=== PATIENT | female | born 1960 | race Caucasian/White ===

== ENCOUNTER 2023-02-05 05:44 | Observation (INO) ==
[2023-02-05] MEDS ORDERED: Lactated Ringers 1000 ml BAG 1,000 ML IV SCH (06:00)
[2023-02-05] MEDS ORDERED: Famotidine IV 10 MG/ML 2 ml VIAL (20 mg) IV ONE (06:00)
[2023-02-05] MEDS ORDERED: Buffered Lidocaine 1% SYRIN 1 ml INTRADERM ONE (06:00)
[2023-02-05] MEDS ORDERED: Dexamethasone IV 4 MG/ML VIAL 1 ml VIAL IV SLOW PU ONE (06:00)
[2023-02-05] MEDS ORDERED: Famotidine IV 10 MG/ML 2 ml VIAL (20 mg) ONE (06:47)
[2023-02-05] MEDS ORDERED: ceFAZolin 2 GM in NS PREMIX 2 GM/100 ML BAG IVPB ONE (06:47)
[2023-02-05] MEDS ORDERED: Dexamethasone IV 4 MG/ML VIAL 1 ml VIAL ONE ×2 (06:47→07:10)
[2023-02-05] MEDS ORDERED: Buffered Lidocaine 1% SYRIN 1 ml ONE (06:47)
[2023-02-05] MEDS ORDERED: Bupivacaine 0.5% SDV PF 30ML VIAL ONE (06:55)
[2023-02-05] MEDS ORDERED: Lidocaine 1% w EPI 1:100,000 MDV 20 ML VIAL ONE (06:55)
[2023-02-05] MEDS ORDERED: Propofol 10 MG/ML 20 ML BTL ONE (07:09)
[2023-02-05] MEDS ORDERED: fentaNYL 100 mcg/2 ml 50 MCG/ML VIAL ONE ×3 (07:09→13:36)
[2023-02-05] MEDS ORDERED: Midazolam 2 mg/2 ml VIAL 1 mg/ml 2 ml VIAL (2 mg) ONE (07:09)
[2023-02-05] MEDS ORDERED: Phenylephrine IV 10 MG/ML 1 ml VIAL ONE (07:09)
[2023-02-05] MEDS ORDERED: Ondansetron 4 mg VIAL 2 MG/ML 2 ml VIAL ONE (07:09)
[2023-02-05] MEDS ORDERED: Lidocaine 2% PF 5 ML VIAL ONE (07:09)
[2023-02-05] MEDS ORDERED: Rocuronium 50 mg VIAL 10 mg/ml 5 ml VIAL (50 mg) ONE ×2 (07:10→11:06)
[2023-02-05] MEDS ORDERED: Acetaminophen IV 1 GM/100ML 1,000 MG/100 ML BAG IV ONE (08:44)
[2023-02-05] MEDS ORDERED: HYDROmorphone 0.5 MG/0.5 ML SYRINGE ONE (09:57)
[2023-02-05] MEDS ORDERED: Metoclopramide 5 MG/ML VIAL (10 mg) IV PRN (11:32)
[2023-02-05] MEDS ORDERED: Naloxone 0.4 mg VIAL 0.4 mg/ml 1 ml VIAL IV PRN (11:32)
[2023-02-05] MEDS ORDERED: Ondansetron 4 mg VIAL 2 MG/ML 2 ml VIAL IV PRN ×2 (11:32→13:35)
[2023-02-05] MEDS ORDERED: HYDROcodone/ACETAMIN 5/325 mg TAB ONE ×2 (13:06→15:41)
[2023-02-05] MEDS: fentaNYL 100 mcg/2 ml 50 MCG/ML VIAL IV PRN ×7 (13:09→14:05)
[2023-02-05] MEDS: HYDROcodone/ACETAMIN 5/325 mg TAB PO PRN ×2 (13:12→15:42)
[2023-02-05] MEDS ORDERED: Ondansetron ODT 4 mg TAB 4 MG TAB PO PRN (13:35)
[2023-02-05] MEDS ORDERED: Lactulose 30 ml UDC PO PRN (13:35)
[2023-02-05] MEDS ORDERED: Magnesium Hydroxide LIQ 30 ML UDC PO PRN (13:35)
[2023-02-05] MEDS ORDERED: ACETAMINOPHEN 650 MG PO PRN (13:42)
[2023-02-05] MEDS ORDERED: TIRZEPATIDE 10 MG/0.5 ML SUBCUT SCH (13:45)
[2023-02-05 13:56] LABS: Rapid COVID-19 Molecular Undetected (Undetected)
[2023-02-05] MEDS ORDERED: Morphine 4 MG/ML VIAL (1 ml) ONE (14:53)
[2023-02-05] MEDS: Morphine 2 MG/ML SYRINGE IV PRN ×3 (14:55→19:41)
[2023-02-05] MEDS: Lactated Ringers 1000 ml BAG 1,000 ML IV SCH (17:34)
[2023-02-05] MEDS ORDERED: COENZYME Q10 ENTER STREGNTH PO SCH (21:00)
[2023-02-05] MEDS ORDERED: DIRECTIONS PO SCH (21:00)
[2023-02-05] MEDS ORDERED: VITAMIN K2 100 MCG PO SCH (21:00)
[2023-02-05] MEDS ORDERED: MAGNESIUM GLYCINATE 100 MG PO SCH (21:00)
[2023-02-05] MEDS ORDERED: CMCS: Simvastatin 10 mg TAB (NF) PO SCH (21:00)
[2023-02-05] MEDS: Magnesium Hydroxide LIQ 30 ML UDC PO SCH (22:03)
[2023-02-06] MEDS: Morphine 2 MG/ML SYRINGE IV PRN ×2 (00:07→10:04)
[2023-02-06] MEDS: Lactated Ringers 1000 ml BAG 1,000 ML IV SCH (04:32)
[2023-02-06 05:31] VITALS: BP 102/70
[2023-02-06 07:06] LABS: Hematocrit 25.6 % (35-45); Hemoglobin 9.2 g/dL (11.5-14.3); Mean Platelet Volume 7.3 fL (7.5-11.2); Platelet Count 241 10^3/uL (150-450)
[2023-02-06 07:44] LABS: Calcium 8.4 mg/dL (8.6-10.3); Creatinine, Serum 0.55 mg/dL (0.51-0.95); Potassium 4.1 mmol/L (3.5-5.0); eGFR CKD-EPI 104.9 (>60)
[2023-02-06] MEDS: Magnesium Hydroxide LIQ 30 ML UDC PO SCH (08:38)
[2023-02-06] MEDS ORDERED: Vitamin THERAPEUTIC TAB PO SCH (09:00)
== END 2023-02-06 10:14 | disposition home or self-care (01) ==
LOC: OR 05:44 → MED 05:44
PROVIDERS: ADMIT Orthopaedic Surgery Sports Medicine; ATTEND Orthopaedic Surgery Sports Medicine